=== PATIENT | female | born 1980 | race Caucasian/White ===

== ENCOUNTER → 2019-10-04 | Outpatient (CLI) | payer OTHER ==
--- NOTE | 2019-10-05 11:16 | REP ---
PETROUS BONE CT STUDY WITHOUT CONTRAST: IACS STUDY. HISTORY: Otalgia left ear. No comparison imaging. FINDINGS: Internal auditory canals are normal and symmetric. Cochlear and vestibular apparatus appear intact. Otic capsule is intact in appearance. Middle ear cavities are aerated fully. External auditory canals and mastoid air cells are unremarkable bilaterally. No bony erosive changes seen. IMPRESSION: Normal temporal bone CT study. Electronically Signed by Andres Campo MD 10/05/2019 01:04 P
== END ==
LOC: M RAD 10:10
PROVIDERS: ATTEND Family Medicine
DX: H92.02 Otalgia, left ear (principal)

== ENCOUNTER → 2019-11-19 | Outpatient (CLI) | payer OTHER | LOC: M RAD 17:00 | PROVIDERS: ATTEND Otolaryngology | DX: J32.0 Chronic maxillary sinusitis (principal) ==